=== PATIENT | female | born 1955 | race Caucasian/White ===

== ENCOUNTER → 2016-08-15 18:32 | Outpatient (CLI) | payer MEDICARE ==
[2014-09-29 08:03] VITALS: BMI 47.5
[~2016-08-15 18:32] MED LIST: ASPIRIN81 MG PO; ATROVENT 0.02%2.5 ML UPD; DEPAKENE250 MG PO; DEPAKOTE250 MG PO; DESERYL100 MG PO; FAMVIR500 MG PO; FLUTICASONE PRO16 GM NASAL; FOLIC ACID1 MG PO; GLUCOPHAGE850 MG PO; LISINOPRIL10 MG PO; METHOTREXATE2.5 MG PO; MUCINEX DM ER1 EAC1 PO; PLAVIX75 MG PO; PROVENTIL HFA6.7 GM INH; SINGULAIR10 MG PO; STERAPRED 5MG 125 MG PO; SYMBICORT 80-10.2 GM INH; SYNTHROID100 MCG PO; VITAMIN D5000 UNIT PO; XOPENEX 0.0.63 MG/3 UPD
== END | disposition home or self-care (01) ==
LOC: D.MAMMO 11:45
DX: Z12.31 Encounter for screening mammogram for malignant neoplasm of breast (principal)

== ENCOUNTER → 2017-07-04 10:37 | Outpatient (CLI) | payer MEDICARE ==
[2014-09-29 08:03] VITALS: BMI 47.5
== END | disposition home or self-care (01) ==
LOC: D.RT 04-11 11:00 → D.RAD 04-11 11:45 → D.RT 10:37
DX: J45.909 Unspecified asthma, uncomplicated (principal); M54.5 Low back pain; R10.2 Pelvic and perineal pain

== ENCOUNTER → 2017-08-08 19:14 | Outpatient (CLI) | payer MEDICARE ==
[2014-09-29 08:03] VITALS: BMI 47.5
== END | disposition home or self-care (01) ==
LOC: D.SLEEP 19:14
DX: G47.33 Obstructive sleep apnea (adult) (pediatric) (principal)

== ENCOUNTER → 2017-12-04 20:01 | Outpatient (CLI) | payer MEDICARE ==
[2014-09-29 08:03] VITALS: BMI 47.5
== END | disposition home or self-care (01) ==
LOC: D.SLEEP 08:00
DX: G47.33 Obstructive sleep apnea (adult) (pediatric) (principal); Z01.812 Encounter for preprocedural laboratory examination

== ENCOUNTER → 2018-05-22 10:02 | Outpatient (CLI) | payer MEDICARE ==
[2014-09-29 08:03] VITALS: BMI 47.5
== END | disposition home or self-care (01) ==
LOC: D.RT 10:02
DX: R93.89 Abnormal findings on diagnostic imaging of other specified body structures (principal); J45.909 Unspecified asthma, uncomplicated

== ENCOUNTER 2018-09-26 11:50 | Inpatient (IN) | payer MEDICARE ==
[~2018-09-26] VITALS: Ht 152.4 cm; Wt 131.1 kg
[2018-09-26 13:11] VITALS: BP 179/74; BMI 56.5
--- NOTE | 2018-09-26 13:21 | NUR ---
PATIENT ADMITTED TO ROOM 2217 PER AMBULANCE. FRIEND PETTY AT BEDSIDE. LUNGS WITH BILATERAL LOWER LOBE WHEEZING. O2 IN PLACE AT 2L NC. HEART SOUNDS S1 AND S2 HEARD IN ALL HATCH. BOWEL SOUNDS ACTIVE X 4. EMESIS BAGS GIVEN R/T NAUSEA. FALL PRECAUTIONS IN PLACE.
[2018-09-26 13:41] LABS: BASOPHILS 0.2 % (0-2); EOSINOPHILS 0.6 % (0-7); HEMATOCRIT 41.1 % (36.0-48.0); HEMOGLOBIN 13.8 g/dL (12-16); IMMATURE GRANULOCYTES 0.7 % (0-5); LYMPHOCYTES 6.9 % (15-50); MCH 29.7 pg (26.0-34.0); MCHC 33.6 g/dL (31.0-37.0); MCV 88.6 fL (80.0-100.0); MEAN PLATELET VOLUME 8.8 fL (7.4-10.4); MONOCYTES 6.8 % (2-11); NEUTROPHILS 84.8 % (40-80); RBC 4.64 10x6/uL (4.00-5.40); WBC 10.3 10x3/uL (4.8-10.8)
[2018-09-26 13:50] LABS: CALCIUM 8.6 mg/dL (8.5-10.1); CARBON DIOXIDE 27.6 mmol/L (21.0-32.0); CREATININE - SERUM 0.9 mg/dL (0.6-1.3); POTASSIUM - SERUM 3.6 mmol/L (3.5-5.1)
[2018-09-26 14:03] LABS: PLATELET COUNT 218 10x3/uL (130-400)
--- NOTE | 2018-09-26 14:18 | NUR ---
22 GAUGE X 1 STICK IN THE LEFT FOREARM. + FLASH, FLUSHED WITHOUT DIFFICULTY SECURED WITH TEGADERM.
--- NOTE | 2018-09-26 14:23 | NUR ---
SINGLE STAYER OPERATOR MADE AWARE OF TEMP 101. NO NEW ORDERS AT THIS TIME
--- NOTE | 2018-09-26 15:08 | NUR ---
FAMILY AT BEDSIDE C/O PATIENT "BURNING UP." TEMP 99.8. DECREASED FROM ADMISSION TEMP OF 101. COOL RAGS APPLIED TO FACE AND TEMPERATURE IN ROOM DECREASED. WILL CONTINUE TO MONITOR.
--- NOTE | 2018-09-26 16:21 | NUR ---
PRN TYLENOL GIVEN FOR FEVER 102.1. LABS ORDERED
--- NOTE | 2018-09-26 16:48 | NUR ---
PATIENT C/O SOB AND DIFFICULTY BREATHING. O2 SAT 95% ON 3L NC. LIME SLUDGE MIXER IN ROOM. RESPIRATORY CALLED TO COME GIVE SCHEDULED BREATHING TREATMENTS. WILL CONTINUE TO MONITOR.
--- NOTE | 2018-09-26 17:13 | NUR ---
TEMP DECREASED TO 99.4 AFTER PRN TYLENOL. WILL CONTINUE TO MONITOR.
--- NOTE | 2018-09-26 17:48 | NUR ---
EDUCATION PROVIDED ON NEED FOR URINE SAMPLE. HAT IN TOILET. VERBALIZED UNDERSTANDING.
[2018-09-26 19:45] LABS: APPEARANCE CLEAR (CLEAR); BILIRUBIN NEGATIVE (NEGATIVE); COLOR YELLOW (YELLOW); GLUCOSE NEGATIVE (NEGATIVE); KETONE NEGATIVE (NEGATIVE); NITRITE NEGATIVE (NEGATIVE); PROTEIN NEGATIVE (NEGATIVE); SPECIFIC GRAVITY 1.005 (1.005-1.020); UROBILINOGEN NORMAL (NORMAL)
[2018-09-26 20:49] VITALS: BP 130/63
[2018-09-27 04:59] VITALS: BP 139/71
--- NOTE | 2018-09-27 05:06 | NUR ---
I have reviewed this patient and I concur with the Shift Assessment completed by the Licensed Practical Nurse today this shift.
[2018-09-27 05:38] LABS: ANION GAP 9.8 mmol/L (8-16); CALCIUM 8.1 mg/dL (8.5-10.1); CARBON DIOXIDE 27.7 mmol/L (21.0-32.0); CREATININE - SERUM 0.9 mg/dL (0.6-1.3); POTASSIUM - SERUM 3.5 mmol/L (3.5-5.1)
[2018-09-27 05:58] LABS: HEMOGLOBIN 12.4 g/dL (12-16); LYMPHOCYTES 9.8 % (15-50); MCH 29.6 pg (26.0-34.0); MCHC 33.5 g/dL (31.0-37.0); MCV 88.3 fL (80.0-100.0); MEAN PLATELET VOLUME 8.8 fL (7.4-10.4); NEUTROPHILS 82.9 % (40-80); PLATELET COUNT 216 10x3/uL (130-400); RBC 4.19 10x6/uL (4.00-5.40); RDW 14.5 % (11.5-14.5)
[2018-09-27 06:00] LABS: WBC 7.5 10x3/uL (4.8-10.8)
--- NOTE | 2018-09-27 07:55 | NUR ---
ASSESSMENT PER FLOW SHEET. PT IS WITHOUT DISTRESS.DROPLET ISOLATION MAINTAINED.CALL LIGHT IN REACH.
[2018-09-27 09:31] VITALS: BP 149/82
[2018-09-27 09:52] VITALS: BP 145/66
--- NOTE | 2018-09-27 10:49 | NUR ---
REMAINS WITHOUT.MONITOR FOR CHANGE
[2018-09-27 13:28] VITALS: BP 146/72
[2018-09-27 15:34] VITALS: Ht 152.4 cm; Wt 131.1 kg
[2018-09-27 17:06] VITALS: BP 151/77
[2018-09-27] MEDS ORDERED: TUMS X-STR300 MG PO (22:57)
[2018-09-28 00:57] VITALS: BP 143/77
[2018-09-28 05:16] VITALS: BP 175/91
--- NOTE | 2018-09-28 05:39 | NUR ---
I have reviewed this patient and I concur with the Shift Assessment completed by the Licensed Practical Nurse today this shift.
[2018-09-28 06:41] LABS: BASOPHILS 0 % (0-2); EOSINOPHILS 0 % (0-7); HEMATOCRIT 37.9 % (36.0-48.0); HEMOGLOBIN 12.4 g/dL (12-16); IMMATURE GRANULOCYTES 0.4 % (0-5); LYMPHOCYTES 13.4 % (15-50); MCH 29.2 pg (26.0-34.0); MCHC 32.7 g/dL (31.0-37.0); MCV 89.2 fL (80.0-100.0); MONOCYTES 11.7 % (2-11); NEUTROPHILS 74.5 % (40-80); PLATELET COUNT 245 10x3/uL (130-400); RBC 4.25 10x6/uL (4.00-5.40); RDW 15.4 % (11.5-14.5); WBC 11.2 10x3/uL (4.8-10.8)
[2018-09-28 06:46] LABS: ANION GAP 12.9 mmol/L (8-16); CALCIUM 8.7 mg/dL (8.5-10.1); CARBON DIOXIDE 26.1 mmol/L (21.0-32.0); CREATININE - SERUM 0.9 mg/dL (0.6-1.3)
[2018-09-28 08:19] VITALS: BP 133/76
--- NOTE | 2018-09-28 10:33 | NUR ---
PATIENT UP WALKING AROUND THE ROOM. NO NEEDS OR COMPLAINTS AT THIS TIME. TM
[2018-09-28 12:00] VITALS: BP 174/84
[2018-09-28 18:39] VITALS: BP 138/72
[2018-09-28 20:53] VITALS: BP 132/62
[2018-09-29 00:18] VITALS: BP 179/96
--- NOTE | 2018-09-29 02:20 | NUR ---
RESTING IN BED NO NEEDS NOTED OR STATED
[2018-09-29 04:58] VITALS: BP 172/86
[2018-09-29 06:55] LABS: BASOPHILS 0 % (0-2); EOSINOPHILS 0 % (0-7); HEMATOCRIT 39.5 % (36.0-48.0); HEMOGLOBIN 13.1 g/dL (12-16); IMMATURE GRANULOCYTES 0.5 % (0-5); MCH 29.4 pg (26.0-34.0); MCHC 33.2 g/dL (31.0-37.0); MCV 88.8 fL (80.0-100.0); MEAN PLATELET VOLUME 9.2 fL (7.4-10.4); MONOCYTES 9.1 % (2-11); NEUTROPHILS 77.4 % (40-80); PLATELET COUNT 283 10x3/uL (130-400); RBC 4.45 10x6/uL (4.00-5.40); RDW 15.2 % (11.5-14.5)
[2018-09-29 07:02] LABS: ANION GAP 13.2 mmol/L (8-16); CALCIUM 9.1 mg/dL (8.5-10.1); CARBON DIOXIDE 28.5 mmol/L (21.0-32.0); CREATININE - SERUM 0.9 mg/dL (0.6-1.3); POTASSIUM - SERUM 3.7 mmol/L (3.5-5.1)
[2018-09-29 09:26] VITALS: BP 160/84
[2018-09-29 13:27] VITALS: BP 146/70
[2018-09-29 18:09] VITALS: BP 117/85
--- NOTE | 2018-09-29 19:13 | MORECARE ---
CASE MANAGEMENT DISCHARGE SUMMARY PATIENT: SOPHY URIAS UNIT: [id number] ADM DATE: 09/26/18 AGE: 63 : 57 SEX: F ROOM/BED: D.2217 AUTHOR: JANETTE BOYD PHYSICIAN: REFERRING PHYSICIAN: SHRUTI DRAKE MD DATE OF SERVICE: 09/29/18 Discharge Plan Patient Name: SOPHY URIAS Facility: [facility]:[place] : 1955 Planned Disposition: Home Anticipated Discharge Date: 09/30/18 Discharge Date: Expected LOS: 4 Initial Reviewer: [email or web address] Initial Review Date: 09/26/2018 Generated: 09/29/18 8:12 pm Patient Name: SOPHY URIAS Page [id number] at 1913 All edits/amendments must be made on the electronic document DICTATION DATE: 09/29/181911 NUCLEAR WEAPONS SPECIALIST: SHADI 09/29/181911 RPT#: [id number] DC DATE: STATUS: ADM IN [facility] [address] [place] [address] END OF REPORT
--- NOTE | 2018-09-29 19:19 | MORECARE ---
CASE MANAGEMENT DISCHARGE SUMMARY PATIENT: SOPHY URIAS UNIT: [id number] ADM DATE: 09/26/18 AGE: 63 : 57 SEX: F ROOM/BED: D.2217 AUTHOR: JANETTE BOYD PHYSICIAN: REFERRING PHYSICIAN: SHRUTI DRAKE MD DATE OF SERVICE: 09/29/18 Discharge Plan Patient Name: SOPHY URIAS [facility] : 1955 Planned Disposition: Home Anticipated Discharge Date: 09/30/18 Discharge Date: Expected LOS: 4 Initial Reviewer: [email or web address] Initial Review Date: 09/26/2018 Generated: 09/29/18 8:19 pm DCPIA - Discharge Planning Initial Assessment Updated by [email or web address]: Natty Lucero on 09/29/18 7:13 pm * Is the patient Alert and Oriented? Yes * PCP DR DRAKE * [facility] * Preadmission Environment Home with Family * ADLs Independent * Equipment CPAP Hospital Bed Nebulizer * Other Equipment DENIES ANY ADDITIONAL DME * List name and contact numbers for known caregivers / representatives who currently or will assist patient after discharge: ENA MCNAIR- [place]- [phone] * Verbal permission to speak to the caregivers and representatives has been obtained from the patient. No * Community resources currently utilized None * Please name any agencies selected above. N/A * Additional services required to return to the preadmission environment? Yes * Can the patient safely return to the preadmission environment? Yes * Has this patient been hospitalized within the prior 30 days at any hospital? No Last DP export: 09/29/18 6:12 p Patient Name: SOHPY URIAS Page 15113 at 1919 All edits/amendments must be made on the electronic document DICTATION DATE: 09/29/181917 STRAND FORMING MACHINE OPERATOR: SHADI 09/29/181917 RPT#: [id number] DC DATE: STATUS: ADM IN [facility] [address] [facility] [place] [address] END OF REPORT
--- NOTE | 2018-09-29 19:26 | MORECARE ---
CASE MANAGEMENT DISCHARGE SUMMARY PATIENT: SOPHY URIAS UNIT: [id number] ADM DATE: 09/26/18 AGE: 63 : 57 SEX: F ROOM/BED: D.6002 AUTHOR: OLIVER,DOC PHYSICIAN: REFERRING PHYSICIAN: SHRUTI DRAKE MD DATE OF SERVICE: 09/29/18 Discharge Plan Patient Name: SOPHY URIAS Facility: [facility]:[place] : 1955 Planned Disposition: Home Anticipated Discharge Date: 09/30/18 Discharge Date: Expected LOS: 4 Initial Reviewer: [email or web address] Initial Review Date: 09/26/2018 Generated: 09/29/18 8:25 pm Comments DCP- Discharge Planning Updated by [email or web address]: Natty Lucero on 09/29/18 6:[address] CM SPOKE WITH THE PATIENT REGARDING POSSIBLE DISCHARGE SUNDAY. SHE WILL BE RETURNING TO HER FRIENDS HOME IN [facility]. SHE HAS BEEN WITH THIS FRIEND FOR 3/4 MONTHS. LIVED ALONE IN A CONDO PREVIOUSLY W/ MULTIPLE STEPS TO GET INTO THE BED ROOM. SHE DOES NOT FEEL SHE WILL NEED HOME HEALTH BUT WOULD CONSIDER [facility]ALL[facility] WHICH SHE HAS HAD BEFORE. DME- [facility]/ CPAP/ NEBULIZER/ HOSPITAL BED SHE MAY REQUIRE OXYGEN AT DISCHARGE. CM HAD BEEN TO HER ROOM. SHE WAS IN THE BATHROOM. CALLED HER IN 15 MINUTES. SHE HAD RETURNED TO BED. WAS SHORT OF BREATH. ASSESSMENT LIMITED SECONDARY TO WORK TO TALK. ENA, HER FRIEND, WILL PROVIDE TRANSPORTATION TO HOME LATE AFTERNOON. PATIENT WILL NEED O2 SAT TESTING TO ASSESS FOR HOME OXYGEN THERAPY. CM TO FOLLOW. DCPIA - Discharge Planning Initial Assessment Updated by [id number]: Natty Lucero on 09/29/18 7:13 pm * Is the patient Alert and Oriented? Yes * PCP DR DRAKE * Pharmacy [facility] IN [facility] * Preadmission Environment Home with Family * ADLs Independent * Equipment CPAP Hospital Bed Nebulizer * Other Equipment DENIES ANY ADDITIONAL DME * List name and contact numbers for known caregivers / representatives who currently or will assist patient after discharge: ENA MCNAIR- FRIEND- [phone] * Verbal permission to speak to the caregivers and representatives has been obtained from the patient. No * Community resources currently utilized None * Please name any agencies selected above. N/A * Additional services required to return to the preadmission environment? Yes * Can the patient safely return to the preadmission environment? Yes * Has this patient been hospitalized within the prior 30 days at any hospital? No Last DP export: 09/29/18 6:19 p Patient Name: SOPHY URIAS Page 39933 at 1926 All edits/amendments must be made on the electronic document DICTATION DATE: 09/29/181924 ELECTRIC METER TESTER: SHADI 09/29/181924 RPT#: [id number] DC DATE: STATUS: ADM IN [facility] [address] [place] [address] END OF REPORT
--- NOTE | 2018-09-29 20:00 | NUR ---
SITTING UP IN BED O2 IN USE, NO APPARENT DISTRESS, SEE SHIFT ASSESSMENT, CALL LIGHT IN REACH
[2018-09-29 21:05] VITALS: BP 148/74
[2018-09-30 04:45] LABS: BASOPHILS 0.1 % (0-2); CARBON DIOXIDE 33.1 mmol/L (21.0-32.0); EOSINOPHILS 0.3 % (0-7); HEMATOCRIT 39.3 % (36.0-48.0); HEMOGLOBIN 12.9 g/dL (12-16); IMMATURE GRANULOCYTES 0.6 % (0-5); LYMPHOCYTES 27.4 % (15-50); MCH 29.3 pg (26.0-34.0); MCHC 32.8 g/dL (31.0-37.0); MCV 89.1 fL (80.0-100.0); MEAN PLATELET VOLUME 8.9 fL (7.4-10.4); NEUTROPHILS 58.6 % (40-80); PLATELET COUNT 281 10x3/uL (130-400); RBC 4.41 10x6/uL (4.00-5.40); RDW 15.2 % (11.5-14.5); WBC 9.7 10x3/uL (4.8-10.8)
[2018-09-30 04:49] LABS: POTASSIUM - SERUM 3.1 mmol/L (3.5-5.1)
[2018-09-30 05:49] VITALS: BP 150/85
--- NOTE | 2018-09-30 07:30 | NUR ---
PT STANDING UP NEXT TO BED, PACKING UP BELONGINGS. ALERT AND ORIENTED. UP AD [place]. ON DROPLET PRECAUTIONS FOR THE FLU. WEARS SCDS WHEN IN THE BED. ON ELECTROLYTE PROTOCOL. POTASSIUM 3.1 THIS AM. PT ON 2L O2, NC. PT ACHS. IV TO RIGHT HAND, LR INFUSING @ 50ML/HR. SITE PATENT WITHOUT REDNESS OR SWELLING. WHEEZES ASCULTATED BILATERAL LUNGS ALL LOBES. NO C/O PAIN. NO S/S OF ACUTE DISTRESS NOTED. CALL LIGHT IN REACH. PT DENIES ANYTHING FURTHER AT THIS TIME. WILL CONTINUE TO MONITOR.
[2018-09-30 08:04] VITALS: BP 138/84
[2018-09-30] MEDS ORDERED: LIPITOR10 MG PO (11:43)
[2018-09-30] MEDS ORDERED: VIBRAMYCIN 100100 MG PO (11:43)
[2018-09-30] MEDS ORDERED: NORVASC5 MG PO (11:43)
[2018-09-30] MEDS ORDERED: OMNICEF300 MG PO (11:43)
[2018-09-30] MEDS ORDERED: FLORAJEN3 CAPS460 MG PO (11:44)
[2018-09-30] MEDS ORDERED: Tessalon Perle PO (11:44)
[2018-09-30] MEDS ORDERED: HCTZ25 MG PO (11:44)
[2018-09-30] MEDS ORDERED: PULMICORT0.5 MG/21 UPD (11:44)
[2018-09-30] MEDS ORDERED: PREDNISONE10 MG PO (11:45)
[2018-09-30] MEDS ORDERED: PROTONIX40 MG PO (11:45)
--- NOTE | 2018-09-30 11:54 | MORECARE ---
CASE MANAGEMENT DISCHARGE SUMMARY PATIENT: SOPHY URIAS UNIT: [id number] ADM DATE: 09/26/18 AGE: 63 : 57 SEX: F ROOM/BED: D.2219 AUTHOR: OLIVER,DOC PHYSICIAN: REFERRING PHYSICIAN: SHRUTI DRAKE MD DATE OF SERVICE: 09/30/18 Discharge Plan Patient Name: SOPHY URIAS Facility: [facility]:[place] : 1955 Planned Disposition: Home Anticipated Discharge Date: 09/30/18 Discharge Date: Expected LOS: 4 Initial Reviewer: [email or web address] Initial Review Date: 09/26/2018 Generated: 09/30/18 12:53 pm Comments DCP- Discharge Planning Updated by [email or web address]: Carol Godinez on 09/30/18 10:[address] WALK TEST DONE POX 96% ON ROOM AIR THEN 94% WHEN AMBULATED DCP- Discharge Planning Updated by [email or web address]: Natty Lucero on 09/29/18 6:[address] CM SPOKE WITH THE PATIENT REGARDING POSSIBLE DISCHARGE SUNDAY. SHE WILL BE RETURNING TO HER FRIENDS HOME IN [facility]. SHE HAS BEEN WITH THIS FRIEND FOR 3/4 MONTHS. LIVED ALONE IN A CONDO PREVIOUSLY W/ MULTIPLE STEPS TO GET INTO THE BED ROOM. SHE DOES NOT FEEL SHE WILL NEED HOME HEALTH BUT WOULD CONSIDER [facility]ALL[facility] WHICH SHE HAS HAD BEFORE. DME- CANE/ CPAP/ NEBULIZER/ HOSPITAL BED SHE MAY REQUIRE OXYGEN AT DISCHARGE. CM HAD BEEN TO HER ROOM. SHE WAS IN THE BATHROOM. CALLED HER IN 15 MINUTES. SHE HAD RETURNED TO BED. WAS SHORT OF BREATH. ASSESSMENT LIMITED SECONDARY TO WORK TO TALK. ENA, HER FRIEND, WILL PROVIDE TRANSPORTATION TO HOME LATE AFTERNOON. PATIENT WILL NEED O2 SAT TESTING TO ASSESS FOR HOME OXYGEN THERAPY. CM TO FOLLOW. DCPIA - Discharge Planning Initial Assessment Updated by [email or web address]: Ntaty Lucero on 09/29/18 7:13 pm * Is the patient Alert and Oriented? Yes * PCP DR DRAKE * Pharmacy [facility] IN [facility] * Preadmission Environment Home with Family * ADLs Independent * Equipment CPAP Hospital Bed Nebulizer * Other Equipment DENIES ANY ADDITIONAL DME * List name and contact numbers for known caregivers / representatives who currently or will assist patient after discharge: ENA MCNAIR- FRIEND- [phone] * Verbal permission to speak to the caregivers and representatives has been obtained from the patient. No * Community resources currently utilized None * Please name any agencies selected above. N/A * Additional services required to return to the preadmission environment? Yes * Can the patient safely return to the preadmission environment? Yes * Has this patient been hospitalized within the prior 30 days at any hospital? No Last DP export: 09/29/18 6:25 p Patient Name: SOPHY URIAS Page 18012 at 1154 All edits/amendments must be made on the electronic document DICTATION DATE: 09/30/181152 SUPERVISOR FIREARMS: SHADI 09/30/181152 RPT#: [id number] DC DATE: STATUS: ADM IN [facility] [address] [place] [address] END OF REPORT
--- NOTE | 2018-09-30 12:57 | MORECARE ---
CASE MANAGEMENT DISCHARGE SUMMARY PATIENT: SOPHY URIAS UNIT: [id number] ADM DATE: 09/26/18 AGE: 63 : 57 SEX: F ROOM/BED: D.0284 AUTHOR: OLIVER,DOC PHYSICIAN: REFERRING PHYSICIAN: SHRUTI DRAKE MD DATE OF SERVICE: 09/30/18 Discharge Plan Patient Name: SOPHY URIAS Facility: [facility]:[place] : 1955 Planned Disposition: Home Anticipated Discharge Date: 09/30/18 Discharge Date: Expected LOS: 4 Initial Reviewer: [email or web address] Initial Review Date: 09/26/2018 Generated: 09/30/18 1:56 pm Comments DCP- Discharge Planning Updated by [email or web address]: Carol Godinez on 09/30/18 11:[address] PATIENT DISCHARGING HOME TODAY, IMM SERVED AND EXPLAINED. PATIENT DENIES ANY NEEDS AT THIS TIME. DCP- Discharge Planning Updated by [id number]: Carol Godinez on 09/30/18 10:[address] WALK TEST DONE POX 96% ON ROOM AIR THEN 94% WHEN AMBULATED DCP- Discharge Planning Updated by [id number]: Natty Lucero on 09/29/18 6:[address] CM SPOKE WITH THE PATIENT REGARDING POSSIBLE DISCHARGE SUNDAY. SHE WILL BE RETURNING TO HER FRIENDS HOME IN [facility]. SHE HAS BEEN WITH THIS FRIEND FOR 3/4 MONTHS. LIVED ALONE IN A CONDO PREVIOUSLY W/ MULTIPLE STEPS TO GET INTO THE BED ROOM. SHE DOES NOT FEEL SHE WILL NEED HOME HEALTH BUT WOULD CONSIDER HOUSECALLS WHICH SHE HAS HAD BEFORE. DME- CANE/ CPAP/ NEBULIZER/ HOSPITAL BED SHE MAY REQUIRE OXYGEN AT DISCHARGE. CM HAD BEEN TO HER ROOM. SHE WAS IN THE BATHROOM. CALLED HER IN 15 MINUTES. SHE HAD RETURNED TO BED. WAS SHORT OF BREATH. ASSESSMENT LIMITED SECONDARY TO WORK TO TALK. ENA, HER FRIEND, WILL PROVIDE TRANSPORTATION TO HOME LATE AFTERNOON. PATIENT WILL NEED O2 SAT TESTING TO ASSESS FOR HOME OXYGEN THERAPY. CM TO FOLLOW. DCPIA - Discharge Planning Initial Assessment Updated by [email or web address]: Natty Lucero on 09/29/18 7:13 pm * Is the patient Alert and Oriented? Yes * PCP DR DRAKE * Pharmacy [facility] IN [place] * Preadmission Environment Home with Family * ADLs Independent * Equipment CPAP Hospital Bed Nebulizer * Other Equipment DENIES ANY ADDITIONAL DME * List name and contact numbers for known caregivers / representatives who currently or will assist patient after discharge: ENA MCNAIR- FRIEND- [phone] * Verbal permission to speak to the caregivers and representatives has been obtained from the patient. No * Community resources currently utilized None * Please name any agencies selected above. N/A * Additional services required to return to the preadmission environment? Yes * Can the patient safely return to the preadmission environment? Yes * Has this patient been hospitalized within the prior 30 days at any hospital? No Coverage Notice Reviewer: [email or web address] Wendy Godinez Notice Issued Date-Time: 09/30/2018 12:15 Notice Type: IM Discharge Notice Notice Delivered To: Patient Relationship to Patient: Healthcare Administrative Assistant Name: Delivery Method: HAND - Hand Delivered Bianca Days: Prior Verbal Notification: Recipient Understood Notice: Yes Recipient Signature: Yes Med Rec Note Co-signed by Attending: Coverage Notice Comment: Last DP export: 09/30/18 10:53 a Patient Name: SOPHY URIAS Page 91764 at 1257 All edits/amendments must be made on the electronic document DICTATION DATE: 09/30/181255 FOOD MIXER: SHADI 09/30/18 125 RPT#: [id number] DC DATE: STATUS: ADM IN [facility] [address] [place] [address] END OF REPORT
[2018-09-30 13:25] VITALS: BP 128/62
--- NOTE | 2018-09-30 14:04 | NUR ---
PT DISCHARGED HOME WITH FAMILY MEMBER VIA WHEELCHAIR. DISCONTINUED IV, CATHETER TIP INTACT. NO C/O PAIN. NO S/S OF ACUTE DISTRESS NOTED. WENT OVER DISCHARGE INSTRUCTIONS WITH PATIENT. PT ACKNOWLEDGED INSTRUCTIONS. PT DENIES ANYTHING FURTHER.
== END 2018-09-30 14:06 | disposition home or self-care (01) | DRG 193 ==
LOC: D.MS 11:50 → OBSVTIME 11:50 → UNDOADMIN 11:50 → D.MS 11:50 → EDSTATUS 10-03 12:57
PROVIDERS: Internal Medicine Nephrology; ADMIT Family Medicine; ATTEND Family Medicine
DX: J09.X2 Influenza due to identified novel influenza A virus with other respiratory manifestations (principal); J96.01 Acute respiratory failure with hypoxia; Z68.43 Body mass index [BMI] 50.0-59.9, adult; J44.9 Chronic obstructive pulmonary disease, unspecified; E11.9 Type 2 diabetes mellitus without complications; I10 Essential (primary) hypertension; I25.10 Atherosclerotic heart disease of native coronary artery without angina pectoris; E66.01 Morbid (severe) obesity due to excess calories

== ENCOUNTER 2019-02-19 14:30 | Outpatient (CLI) | payer MEDICARE, MEDICAID ==
[2018-09-27 15:34] VITALS: BMI 56.4
[~2019-02-19 14:30] MED LIST changes: +FLORAJEN3 CAPS460 MG PO; +HCTZ25 MG PO; +LIPITOR10 MG PO; +NORVASC5 MG PO; +OMNICEF300 MG PO; +PREDNISONE10 MG PO; +PROTONIX40 MG PO; +PULMICORT0.5 MG/21 UPD; +TUMS X-STR300 MG PO; +Tessalon Perle PO; +VIBRAMYCIN 100100 MG PO
== END 2019-02-19 15:00 | disposition home or self-care (01) ==
LOC: D.MAMMO 14:30
PROVIDERS: ATTEND Nurse Practitioner Family
DX: Z12.31 Encounter for screening mammogram for malignant neoplasm of breast (principal)

== ENCOUNTER → 2019-04-17 08:52 | Outpatient (CLI) | payer MEDICARE, MEDICAID ==
[2018-09-27 15:34] VITALS: BMI 56.4
== END | disposition home or self-care (01) ==
LOC: D.RT 08:52
PROVIDERS: ATTEND Internal Medicine Pulmonary Disease
DX: J45.909 Unspecified asthma, uncomplicated (principal)

== ENCOUNTER → 2019-08-20 07:57 | Outpatient (CLI) | payer MEDICARE, MEDICAID ==
[2018-09-27 15:34] VITALS: BMI 56.4
== END | disposition home or self-care (01) ==
LOC: D.CT 07:57
PROVIDERS: ATTEND Internal Medicine Pulmonary Disease
DX: J84.9 Interstitial pulmonary disease, unspecified (principal)

== ENCOUNTER → 2019-08-21 17:29 | Outpatient (CLI) | payer MEDICARE, MEDICAID ==
[2018-09-27 15:34] VITALS: BMI 56.4
== END | disposition home or self-care (01) ==
LOC: D.MAMMO 10:00
PROVIDERS: ATTEND Family Medicine
DX: R92.8 Other abnormal and inconclusive findings on diagnostic imaging of breast (principal)